=== PATIENT | female | born 1965 | race Caucasian/White ===

== ENCOUNTER 2016-08-15 18:13 | Emergency (ER) | payer BC ==
[2016-08-15] MEDS ORDERED: ONDANSETRON ODT 4 MG TAB ONE (19:24)
[2016-08-15] MEDS ORDERED: SODIUM CHLORIDE 0.9% 1,000 ML ONE (19:44)
[2016-08-15] MEDS ORDERED: CEFTRIAXONE 1 GM VIAL ONE (20:22)
[2016-08-15] MEDS ORDERED: SODIUM CHLORIDE 0.9% 100 ML IV ONE (20:23)
== END 2016-08-15 21:22 | disposition home or self-care (01) ==
LOC: ER 18:13
DX: A08.4 Viral intestinal infection, unspecified (principal); N30.00 Acute cystitis without hematuria
CPT/HCPCS: 36415; 80053; 81001; 83690; 85025; 87088; 87804; 96361; 96365